=== PATIENT | female | born 2005 | race African-American/Black ===

== ENCOUNTER 2024-03-19 23:54 | Emergency (ER) | payer MEDICAID, OTHER ==
[~2024-03-19] VITALS: Ht 170.2 cm; Wt 85.0 kg
[2024-03-20 00:19] VITALS: TEMP 98.8; O2SAT 99
[2024-03-20] MEDS: LIDOCAINE HCL 1% 20ML VIAL (Pyxis) INJ INFIL ONE (01:00)
[2024-03-20] MEDS: BACITRACIN 14GM TUBE TOP ONE (01:15)
[2024-03-20 01:46] VITALS: BP 135/79; PULSE 112; RESP 16
[2024-03-20] MEDS: IBUPROFEN 400MG TABLET PO ONE (01:46)
[2024-03-20] MEDS: TETANUS, DIPHTHERIA, PERTUSSIS VAC/PF 0.5ML (>10YR OLD) IM ONE (02:01)
[2024-03-20] MEDS ORDERED: AMOX1TAB16 MT (02:55)
== END 2024-03-20 03:35 | disposition home or self-care (01) ==
LOC: ER 03-20 00:08
DX: S41.131A Puncture wound without foreign body of right upper arm, initial encounter (principal); W54.0XXA Bitten by dog, initial encounter; Y93.89 Activity, other specified; Y92.89 Other specified places as the place of occurrence of the external cause; Y99.8 Other external cause status
CPT/HCPCS: 90715; 12002; 90471; 99283; J3490; Z7610

== ENCOUNTER 2025-11-26 08:57 | Emergency (ER) | payer MEDICAID ==
[~2025-11-26] VITALS: Ht 170.2 cm; Wt 81.0 kg
[~2025-11-26 08:57] MED LIST: AMOX1TAB16 MT
[2025-11-26 08:58] VITALS: O2SAT 99
[2025-11-26] MEDS: PREDNISONE 20MG TABLET PO ONE (10:45)
[2025-11-26] MEDS: ALBUTEROL (0.083%) 2.5MG/3ML NEB HHN SCH (12:58)
[2025-11-26 12:59] VITALS: PULSE 77; RESP 18
[2025-11-26 13:41] LABS: INFLUENZA TYPE A Detected (Pres. Neg.)
[2025-11-26 13:42] LABS: INFLUENZA TYPE B Presumptive Negative (Pres. Neg.)
[2025-11-26] MEDS ORDERED: P50 MT (14:30)
[2025-11-26] MEDS ORDERED: TAM75 MT (14:30)
[2025-11-26 15:11] VITALS: BP 130/77; PULSE 72; RESP 17; TEMP 39.6; O2SAT 100
== END 2025-11-26 15:14 | disposition home or self-care (01) ==
LOC: ER 08:57
DX: J10.1 Influenza due to other identified influenza virus with other respiratory manifestations (principal); J45.901 Unspecified asthma with (acute) exacerbation
CPT/HCPCS: 87804 ×2; 71045; 94640; 99284; 87426; J7512; Z7610 ×3; 94070; 94664; 98960